=== PATIENT | female | born 1975 | race Caucasian/White ===

== ENCOUNTER 2021-03-12 21:21 | Emergency (ER) | payer MEDICAID, SELFPAY ==
--- NOTE | ~2021-03-12 | XR_ITS ---
EXAMINATION: XR ANKLE, RIGHT XR FOOT, RIGHT CLINICAL INFORMATION: Unable to ambulate. Pain in the ankle and foot. COMPARISON: None TECHNIQUE: AP, lateral, and mortise views of the right ankle and AP, lateral, and oblique views of the right foot. Lateral view of the ankle is included with the foot. FINDINGS: RIGHT ANKLE: Mild soft tissue swelling at the ankle and hindfoot. No acute fracture or malalignment. Ankle mortise is symmetric. No ankle joint effusion. Bone mineralization is normal. Small enthesopathic spurs are present at the Achilles tendon insertion and plantar fascial origin on the calcaneus. RIGHT FOOT: No fracture or malalignment. Mild soft tissue swelling at the ankle and hindfoot. Joint spaces are well-preserved. No erosions. Normal foot alignment. No radiodense foreign bodies. Small enthesopathic spurs are present at the Achilles tendon insertion and plantar fascial origin on the calcaneus. XR/XR ankle RT min 3V IMPRESSION: No acute osseous abnormalities. Mild soft tissue swelling at the ankle and hindfoot. Small enthesopathic spurs at the calcaneus.
--- NOTE | ~2021-03-12 | XR_ITS ---
EXAMINATION: XR ANKLE, RIGHT XR FOOT, RIGHT CLINICAL INFORMATION: Unable to ambulate. Pain in the ankle and foot. COMPARISON: None TECHNIQUE: AP, lateral, and mortise views of the right ankle and AP, lateral, and oblique views of the right foot. Lateral view of the ankle is included with the foot. FINDINGS: RIGHT ANKLE: Mild soft tissue swelling at the ankle and hindfoot. No acute fracture or malalignment. Ankle mortise is symmetric. No ankle joint effusion. Bone mineralization is normal. Small enthesopathic spurs are present at the Achilles tendon insertion and plantar fascial origin on the calcaneus. RIGHT FOOT: No fracture or malalignment. Mild soft tissue swelling at the ankle and hindfoot. Joint spaces are well-preserved. No erosions. Normal foot alignment. No radiodense foreign bodies. Small enthesopathic spurs are present at the Achilles tendon insertion and plantar fascial origin on the calcaneus. XR/XR foot RT 2V IMPRESSION: No acute osseous abnormalities. Mild soft tissue swelling at the ankle and hindfoot. Small enthesopathic spurs at the calcaneus.
[2021-03-12 21:34] VITALS: BP 134/67; PULSE 105; RESP 18; TEMP 36.7; O2SAT 100; BMI 24.4
--- NOTE | 2021-03-12 23:35 | ED.LOWEXIN ---
HPI - Extremity Injury (Lower) General Chief Complaint: Extremity Injury, Lower Stated Complaint: fall - leg injury Source: patient and family Mode of arrival: ambulatory Limitations: language barrier History of Present Illness HPI Narrative: 45-year-old female presents with right ankle pain after sliding down the stairs earlier today. She does not report any prodromal symptoms or head strike, loss of consciousness or any other concerning symptoms. She states that it is very difficult to walk on her ankle because of the pain and swelling. She does not report any other symptoms at this time MD complaint: ankle injury Onset (ago): hour(s) (Within the hour of arrival) Type of Injury: inversion Place: home Severity: moderate Severity scale (1-10): 7 Relieving factors: nothing Exacerbating factors: weight bearing, movement and palpation Context: walking Associated symptoms: swelling and unable to bear weight Other symptoms: none Treatments prior to arrival: cold therapy Related Data Allergies Allergy/AdvReac Type Severity Reaction Status Date / Time aspirin [ASA] Allergy Angioedema Verified 03/12/21 21:41 Review of Systems Review of Systems: Constitutional: No Fever, No Chills ENT/Mouth: No Ear Pain, No Hoarseness, No sore throat Eyes: No Eye Pain, No Swelling, No Redness, No Foreign Body Cardiovascular: No Chest Pain, No SOB Respiratory: No Cough, No Dyspnea Gastrointestinal: No Nausea, No Vomiting, No Diarrhea, No abdominal Pain Genitourinary: No Dysuria, No Hematuria Musculoskeletal: positive right ankle bruising, pain and swelling No Myalgias Skin: No Skin lacerations, No rash Neuro: No Weakness, No Numbness, No Paresthesias, No Loss of Consciousness, No Dizziness, No Headache Psych: No Anxiety/Panic, No Depression Heme/Lymph: no easy bruising, no Lymphadenopathy Endocrine: No Polyuria, No Polydipsia Yes all other systems are reviewed and are negative COUNTS INCLUDE 234 BEDS AT THE [facility] Past Medical History Attestation statement: The following information was validated with the patient. Source: old records reviewed Medical History (Updated 03/13/21 @ 00:36 by Jessi Zuniga NP) Asthma Hypothyroid Surgical History History of thyroid surgery Social History Social History Advance Directives: No Advance Directives Information Provided: Yes Patient : No Physical Exam Vital Signs: Vital Signs: Last Vital Signs Temp 98.0 F 03/12/21 21:34 Pulse 105 H 03/12/21 21:34 Resp 18 03/12/21 21:34 BP 134/67 03/12/21 21:34 Pulse Ox 100 03/12/21 21:34 Body Mass Index 24.4 Appearance: Alert. Oriented X3. No acute distress. Eyes: Pupils equal, round and reactive to light. ENT: Pharynx normal. Neck: Normal inspection. Neck supple. CVS: Normal heart rate and rhythm. Pulses normal. Respiratory: No respiratory distress. Breath sounds normal. Abdomen: Soft and nontender. Skin: Skin warm and dry. Normal skin color. Normal skin turgor. Extremities: Right lateral malleolar process bruising, swelling and tenderness to palpation. Decreased range of motion on inversion and eversion, moderate range of motion when flexing and extending. Brisk capillary refill, equal pulses. Normal sensation. Neuro: No motor deficit. No sensory deficit. Cranial nerves 2-12 intact. No focal neural deficits. Course Course Course Narrative: 45-year-old female presents with a suspected ankle sprain. X-rays are negative for fractures however based on her presentation, decreased range of motion, swelling, bruising and pain is highly suspicious for sprain. Will place in an Aircast and Phil wrap. Will give Tylenol for pain. Will have patient follow-up with primary care physician or Orthopedics as needed. apprentice jockey utilized for all correspondence. Google translate utilized for discharge instructions. MDM - Extremity Injury (Lower) Differential Diagnosis Differential diagnosis: Likely ankle sprain and strain and ankle fracture Medical Records Attestation: I reviewed the patient's medical records. Imaging Data Ankle and foot x-ray: Attestation: I personally reviewed and interpreted this imaging study as follows: Radiologist's impression: EXAMINATION: XR ANKLE, RIGHT XR FOOT, RIGHT CLINICAL INFORMATION: Unable to ambulate. Pain in the ankle and foot.? COMPARISON: None? TECHNIQUE: AP, lateral, and mortise views of the right ankle and AP, lateral, and oblique views of the right foot. Lateral view of the ankle is included with the foot. FINDINGS: RIGHT ANKLE:? Mild soft tissue swelling at the ankle and hindfoot. No acute fracture or malalignment. Ankle mortise is symmetric. No ankle joint effusion. Bone mineralization is normal. Small enthesopathic spurs are present at the Achilles tendon insertion and plantar fascial origin on the calcaneus.? RIGHT FOOT: No fracture or malalignment. Mild soft tissue swelling at the ankle and hindfoot. Joint spaces are well-preserved. No erosions. Normal foot alignment. No radiodense foreign bodies. Small enthesopathic spurs are present at the Achilles tendon insertion and plantar fascial origin on the calcaneus.? XR/XR ankle RT min 3V IMPRESSION: No acute osseous abnormalities. Mild soft tissue swelling at the ankle and hindfoot. Small enthesopathic spurs at the calcaneus. Discharge Plan Discharge Clinical Impression: Ankle sprain and strain Patient Disposition: Home, Self-Care Instructions: Ankle Sprain (ED), Ankle Stirrup Splint (ED), R.I.C.E. Treatment (ED) Additional Instructions: Fue evaluado por dolor en el tobillo derecho. Las radiograf?as son negativas para los hallazgos agudos que requieren alma intervenci?n urgente. No hay fracturas ni dislocaciones. Tiene un esguince de rick 1 sospechado. Use la f?pamela seg?n sea necesario para mayor comodidad. Puede soportar peso sobre el pie derecho seg?n lo tolere. Use muletas para elizalde comodidad. Krys un seguimiento con el m?dico de atenci?n primaria y / o el ortopedista seg?n sea necesario. Telma por elegir terrence departamento de emergencias para elizalde evaluaci?n. Krys un seguimiento con elizalde m?dico de atenci?n primaria seg?n sea necesario. Regrese al departamento de emergencias por cualquier s?ntoma nuevo, preocupante o que empeore. You were evaluated for right ankle pain. X-rays are negative for acute findings requiring emergent intervention. There are no fractures or dislocations. You do have a suspected grade 1 sprain. Use the splint as needed for comfort. You may bear weight to the right foot as tolerated. Use crutches for comfort. Follow-up with primary care physician and/or orthopedics as needed. Thank you for choosing this emergency department for evaluation. Please follow-up with primary care physician as needed. Return to the emergency department for any new, concerning, or worsening symptoms. Referrals: Steph Gould PA-C [Physician Fire Crew Specialist] - 2 days (Ankle sprain) Interventions: ED Discharge Assessment Last Done: 03/13/21 01:18 Discharge Date/Time: 03/13/21 01:21
[2021-03-13] MEDS: Acetaminophen 325 MG TABLET 650 MG PO (00:32)
== END 2021-03-13 01:21 | disposition home or self-care (01) ==
PROVIDERS: Emergency Provider Emergency Medicine Emergency Medical Services; PCP Internal Medicine
DX: S93.401A Sprain of unspecified ligament of right ankle, initial encounter (principal); M25.572 Pain in left ankle and joints of left foot; W10.9XXA Fall (on) (from) unspecified stairs and steps, initial encounter; Y93.9 Activity, unspecified; Y92.009 Unspecified place in unspecified non-institutional (private) residence as the place of occurrence of the external cause; Y99.9 Unspecified external cause status
CPT/HCPCS: 29515; 73610; 73620; 99284

== ENCOUNTER 2021-06-19 11:08 | Outpatient (REF) | payer MEDICAID, SELFPAY ==
--- NOTE | ~2021-06-19 | MM_ITS ---
EXAMINATION: MM SCREENING DIGITAL BREAST TOMOSYNTHESIS, BILATERAL CLINICAL INFORMATION: Screening. Asymptomatic. The lifetime risk of breast cancer based on the Tyrer-Cuzick Model is 7%. COMPARISON: Mammography: 11/29/2017, 11/05/2017 (baseline), targeted left breast ultrasound 11/29/2017 TECHNIQUE: Digital breast tomosynthesis is performed in both the craniocaudal and mediolateral oblique views along with computer-aided detection (CAD). Synthesized 2D images are generated from the tomosynthesis. FINDINGS: The breasts are heterogeneously dense, which may obscure small masses (ACR BI-RADS breast composition Category c). The known cyst anterior medial left breast is increased in size, approximately 2.5 cm compared with prior measurement 1.9 cm in 2018. Adjacent small satellite cyst is without significant change. The remainder of the breasts show no significant mass and no architectural abnormality or abnormal calcifications. The axilla and skin contours are unremarkable. MM/MM tomosynthesis screening BI IMPRESSION: No mammographic evidence of malignancy. Fibrocystic changes anterior medial left breast. ASSESSMENT: BI-RADS 2: Benign RECOMMENDATION: Routine annual mammography screening. This patient's information was entered into a reminder system with a target due date for their next mammogram.
--- NOTE | ~2021-06-19 | US_ITS ---
EXAMINATION: US PELVIS CLINICAL INFORMATION: Abnormal bleeding COMPARISON: Previous pelvic ultrasound January 2018 TECHNIQUE: Ultrasound of the pelvis is performed using both transabdominal and transvaginal transducers along with Doppler. Transvaginal imaging is performed due to inadequate visualization transabdominally. FINDINGS: The uterus is anteverted and measures 9.3 x 4.7 x 5.3 cm in dimension. No focal uterine lesion is seen. Endometrial thickness measures 0.8 cm. There is a 0.8 x 0.4 x 0.5 cm hyperechoic area in the abdomen with central vascularity questionable for a polyp. There is an adjacent 3 mm cyst in the endometrium. There are nabothian cysts in the cervix. The ovaries are normal-appearing. The right ovary measures 2.2 x 1.2 x 1.4 cm. The left ovary measures 2.3 x 1.7 x 2 cm. There is no fluid in the pelvis. US/US pelvic and transvaginal IMPRESSION: Question 8 x 4 x 5 cm endometrial polyp. This could be further evaluated with a follow-up pelvic ultrasound, sonohysterogram or pelvic MRI.
== END 2021-06-19 11:09 | disposition home or self-care (01) ==
LOC: HO.US 11:08
PROVIDERS: Visit Provider Advanced Practice Midwife
DX: Z12.31 Encounter for screening mammogram for malignant neoplasm of breast (principal); N93.9 Abnormal uterine and vaginal bleeding, unspecified
CPT/HCPCS: 76830; 76856; 77063; 77067

== ENCOUNTER 2021-07-17 13:13 | Outpatient (REF) | payer MEDICAID, SELFPAY ==
[2021-07-17 15:06] LABS: Hematocrit 39.8 % (37.0-47.0); Hemoglobin 12.9 g/dl (12.0-16.0); Mean Corpuscular HGB Conc 32.4 g/dl (31.0-35.0); Mean Corpuscular Hemoglobin 27.7 pg (27.0-33.0); Mean Corpuscular Volume 85.6 fL (80.0-98.0); Mean Platelet Volume 12.2 fL (9.4-12.3); Platelet Count 309 X10*3/uL (160-400); Red Blood Count 4.65 X10*6/uL (4.20-5.50); Red Cell Distribution Width 13.3 % (11.0-16.0); White Blood Count 9.2 X10*3/uL (4.8-10.8)
[2021-07-17 15:50] LABS: TSH reflex Free T4 2.52 uIU/mL (0.32-4.0)
[2021-07-18 05:50] LABS: CT PCR NOT DETECTED (Not Detect.); NG PCR NOT DETECTED (Not Detect.)
[2021-07-18 10:20] LABS: BV Int Neg Control Negative (Negative); BV Int Pos Control Positive (Positive)
== END 2021-07-17 13:14 | disposition home or self-care (01) ==
LOC: HO.LAB 13:13
PROVIDERS: Visit Provider Advanced Practice Midwife
DX: N93.9 Abnormal uterine and vaginal bleeding, unspecified (principal); N84.0 Polyp of corpus uteri
CPT/HCPCS: 36415; 81025; 84443; 85027; 87480; 87491; 87510; 87591; 87660; 99202

== ENCOUNTER → 2021-08-09 10:06 | Outpatient (BNVA) | payer MEDICAID, SELFPAY | PROVIDERS: PCP Registered Nurse Community Health; Visit Provider Obstetrics & Gynecology | DX: N93.9 Abnormal uterine and vaginal bleeding, unspecified (principal) | CPT/HCPCS: 99212 ==

== ENCOUNTER 2021-09-01 11:47 | Day surgery (SDC) | payer MEDICAID, SELFPAY ==
[2021-08-25 13:15] VITALS: BMI 24.7
--- NOTE | 2021-08-31 08:28 | HO.ANESPROP2 ---
Documented by User: Amaya Dugan NP 08/31/21 08:28 HPI - Anesthesia Eval Consult details Narrative: 46yo F for D&C Hysteroscopy, Poss Polypectomy, Poss Myomectomy PMFSH Active Problems Active Problems: All Active Problems (Updated 08/09/21 @ 10:15 by Elvis Gupta MD) Abnormal uterine bleeding (AUB) (Acute) Past Medical History Medical History Abnormal uterine bleeding (AUB) Asthma H/O abnormal cervical Papanicolaou smear History of anxiety Hyperlipidemia Hypothyroid Osteoporosis Vitamin D deficiency Surgical History Surgical History History of thyroid surgery Hx of tubal ligation Social History Social History Alcohol intake: current Alcohol intake frequency: holidays/special occasions only Patient Tobacco Use Status: Never used Tobacco Advance Directives: No (unknown) Advance Directives Information Provided: Yes (brochure mailed) Advance Directives on File: No Patient : No FDLMP: 08/04/21 Meds Allergies Allergy/AdvReac Type Severity Reaction Status Date / Time aspirin [ASA] Allergy Angioedema Verified 08/09/21 10:15 Home Medications Medication Instructions Recorded Confirmed Last Taken Type albuterol sulfate 90 mcg/actuation 2 puff PO Q4-6H PRN 07/17/21 Unknown History aerosol inhaler (ProAir HFA) levothyroxine 25 mcg tablet 25 mcg PO DAILY 07/17/21 Unknown History Exam Exam Date and Time: August 31, 2021 0828 Height,Weight and Vital Signs: Height 5 ft Weight 57.606 kg Assessment and Plan Assessment Anesthesia Assessment: Chart Reviewed Documented by User: Kiesha Lai MD 09/01/21 13:01 PMFSH Active Problems Active Problems: All Active Problems (Updated 08/09/21 @ 10:15 by Elvis Gupta MD) Abnormal uterine bleeding (AUB) (Acute) Asthma stable. Inhaler prn. Not used inhaler for over a month Past Medical History Medical History Abnormal uterine bleeding (AUB) Asthma H/O abnormal cervical Papanicolaou smear History of anxiety Hyperlipidemia Hypothyroid Osteoporosis Vitamin D deficiency Family History Family history of problems with anesthesia: No Surgical History Surgical History History of thyroid surgery Hx of tubal ligation History of Problems with Anesthesia: No Social History Social History Alcohol intake: current Alcohol intake frequency: holidays/special occasions only Patient Tobacco Use Status: Never used Tobacco Advance Directives: No (unknown) Advance Directives Information Provided: Yes (brochure mailed) Advance Directives on File: No Patient : No FDLMP: 08/04/21 Meds Allergies Allergy/AdvReac Type Severity Reaction Status Date / Time aspirin [ASA] Allergy Angioedema Verified 08/09/21 10:15 Home Medications Medication Instructions Recorded Confirmed Last Taken Type albuterol sulfate 90 mcg/actuation 2 puff PO Q4-6H PRN 07/17/21 Unknown History aerosol inhaler (ProAir HFA) levothyroxine 25 mcg tablet 25 mcg PO DAILY 07/17/21 Unknown History Exam Height,Weight and Vital Signs: Height 5 ft Weight 57.606 kg Vital Signs Temp Pulse Resp BP Pulse Ox 09/01/21 12:32 98.7 F 120 H 20 140/68 H 98 Pertinent Lab Results Pertinent Lab Results: Lab Results 09/01/21 Range/Units 12:13 Urine Test NEGATIVE (NEGATIVE) Airway Mallampati Class: III (Significant overbite) TM Dist: >3cm Neck ROM: Full Loose/Missing/Broken Teeth: Yes (2 molars broken, 2 molars extracted) Heart: RRR Lungs: CTAB Assessment and Plan Assessment Anesthesia Assessment: Anesthesia Plan Discussed Final Anesthetic Review Family History of Problems with Anesthesia: No History of Problems with Anesthesia: No NPO: Yes ASA Class: II Final Preanesthetic Review: No Changes in Pt Med Stat, Meds/Allgs Chart Reviewed, Consent Obtained/Reviewed and Anes Risks/Benef Reviewed Patient Risk: Low Procedure Risk: Low Assessment/Block/Sedation in SS: Assess/Block/Sedation-SS Anesthetic Plan Anesthetic Plan: GA and MAC: Disposition: Standard PACU
[2021-09-01 12:27] LABS: UPreg QC Valid YES; Urine Pregnancy NEGATIVE (NEGATIVE)
[2021-09-01 12:32] VITALS: BP 140/68; PULSE 120; RESP 20; TEMP 37.1; O2SAT 98
--- NOTE | 2021-09-01 12:36 | MHC.SHP ---
Pre-Procedural Eval Section A Date of Service: 09/01/21 The patient is an INPATIENT: No Changes since office visit: No Cold of Flu in the past 2 weeks, No New Medical Problems, No Changes in Medication and No Patient answered all questions The History & Physical has been completed within 30 days and I have reviewed it.: Yes Section B Chief Complaint: AUB Allergies: Allergies Allergy/AdvReac Type Severity Reaction Status Date / Time aspirin [ASA] Allergy Angioedema Verified 08/09/21 10:15 Plan Diagnosis/Plan: Unchanged I have reviewed the history and physical and performed a pertinent physical examination on my patient. No changes have occurred unless specified.
[2021-09-01] MEDS: Lactated Ringers 1,000 ML 100 ML IVCONT (13:02)
--- NOTE | 2021-09-01 14:14 | P.BOP_ITS ---
Brief Operative Note Date of Service: 09/01/21 Pre-op diagnosis: Abnormal uterine bleeding Post-op diagnosis: same ( the same plus endometrial polyp) Procedure: Hysteroscopy D&C, Polypectomy Surgeon: Elvis Gupta MD Anesthesia: MAC Was an Technical Writer And Editor used for this Procedure?: No Estimated blood loss (mL): 0 Pathology: other (Endometrial Scrapping. Polyp) Condition: stable Disposition: PACU
--- NOTE | 2021-09-01 14:14 | W.PM.OPN ---
Operative Note Operative Note Date of Service: 09/01/21 Narrative: Preop Diagnosis: abnormal uterine bleeding Operation: Diagnostic Hysteroscopy, Dilataion & Curettage and polypectomy Post Op Diagnosis: Endometrial Polyp QBL: Minimal Anesthesia: MAC Surgeon: Elvis Gupta MD Steward Dishwasher: None Complication: None Pathology: Endometrial Scrapings, Endometrial polyp Procedure: The patient was put in the dorsal lithotomy position, scrubbed, and draped in the usual manner. A sterile speculum was inserted in the patient's vagina. The anterior lip of the cervix was grasped with a single tooth tenaculum. The cervix was dilated up to 5 mm, then the scope was inserted in the patient's uterus. Inspection revealed endometrial polyp. The Myosure light device was used; it was introduced through the operative channel and polypectomy done with no complications. At the end of the procedure, all instruments were taken out of the patient uterine and vaginal cavity, and sharp curetting was carried on with moderate amount of tissues retrieved. The single tooth tenaculum was then removed and homeostasis was assured using pressure,. The patient tolerated the procedure well and was transferred to the PACU in a stable condition.
[2021-09-01 14:25] VITALS: BP 124/76; PULSE 106; RESP 16; TEMP 37.1; O2SAT 100
[2021-09-01 14:30] VITALS: BP 119/76; PULSE 103; RESP 16; O2SAT 100
[2021-09-01 14:44] VITALS: BP 119/78; PULSE 101; RESP 18; TEMP 36.4; O2SAT 99
== END 2021-09-01 15:27 | disposition home or self-care (01) ==
PROVIDERS: Visit Provider Obstetrics & Gynecology
PROC: 0UDB8ZZ Extraction of Endometrium, Via Natural or Artificial Opening Endoscopic (ICD-10-PCS; CPT 58558; principal; 2021-09-01 13:20)
DX: N93.9 Abnormal uterine and vaginal bleeding, unspecified (principal); N84.0 Polyp of corpus uteri; J45.909 Unspecified asthma, uncomplicated; Z88.8 Allergy status to other drugs, medicaments and biological substances; E03.9 Hypothyroidism, unspecified; E78.5 Hyperlipidemia, unspecified; E55.9 Vitamin D deficiency, unspecified; M81.0 Age-related osteoporosis without current pathological fracture; Z79.899 Other long term (current) drug therapy
CPT/HCPCS: 58558; 81025; 88305; J2250; J2405; J3010

== ENCOUNTER → 2021-09-13 12:45 | Outpatient (BNVA) | payer MEDICAID, SELFPAY | PROVIDERS: Visit Provider Obstetrics & Gynecology ==

== ENCOUNTER → 2022-02-22 10:59 | Outpatient (BNVA) | payer MEDICAID, SELFPAY | PROVIDERS: Visit Provider Obstetrics & Gynecology | DX: N93.9 Abnormal uterine and vaginal bleeding, unspecified (principal) | CPT/HCPCS: 99212 ==

== ENCOUNTER 2022-05-23 09:11 | Outpatient (REF) | payer MEDICAID, SELFPAY ==
--- NOTE | ~2022-05-23 | XR_ITS ---
EXAMINATION: XR CHEST CLINICAL INFORMATION: Shortness of breath. COMPARISON: None TECHNIQUE: 2 views of the chest were obtained. FINDINGS: No significant abnormality is noted involving the heart, lungs, mediastinum, bony thorax or soft tissues. XR/XR chest 2V IMPRESSION: Unremarkable chest examination.
== END 2022-05-23 09:12 | disposition home or self-care (01) ==
LOC: HO.XRAY 09:11
PROVIDERS: PCP Nurse Practitioner Primary Care; Visit Provider Nurse Practitioner Primary Care
DX: R06.02 Shortness of breath (principal)
CPT/HCPCS: 71046

== ENCOUNTER 2023-04-09 08:48 | Outpatient (REF) | payer MEDICAID, SELFPAY | END 2023-04-09 08:49 | disposition home or self-care (01) | LOC: HO.MAMMO 08:48 | PROVIDERS: PCP Nurse Practitioner Primary Care; Visit Provider Nurse Practitioner Primary Care | DX: Z13.89 Encounter for screening for other disorder (principal) ==

== ENCOUNTER 2023-06-26 08:21 | Outpatient (REF) | payer MEDICAID, SELFPAY ==
[2023-07-02 17:29] LABS: HPV 16 RNA NOT DETECTED (NOT DETECTED); HPV mRNA E6/E7 rflx Detected (Not Detected)
== END 2023-06-26 08:22 | disposition home or self-care (01) ==
LOC: HO.LNP 08:21
PROVIDERS: PCP Nurse Practitioner Primary Care; Visit Provider Obstetrics & Gynecology
DX: Z01.419 Encounter for gynecological examination (general) (routine) without abnormal findings (principal); Z11.51 Encounter for screening for human papillomavirus (HPV); N85.2 Hypertrophy of uterus
CPT/HCPCS: 87624; 87625; 88142

== ENCOUNTER 2023-06-26 08:21 | Outpatient (AMB) | payer MEDICAID, SELFPAY ==
--- NOTE | 2023-06-26 08:24 | A.OFFVIS_ITS ---
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 No complaints. Last Pap/HPV was in 12/27 was negative Last Mammogram was in 07/02 was BI-RADS 2 No previous screening Colonoscopy PFSH Medical History Abnormal uterine bleeding (AUB) Osteoporosis Hyperlipidemia H/O abnormal cervical Papanicolaou smear History of anxiety Vitamin D deficiency Asthma Hypothyroid Surgical History Hx of tubal ligation History of thyroid surgery Social History Household Members Other:: daughter Housing: House Alcohol intake: current Alcohol intake frequency: holidays/special occasions only Patient Tobacco Use Status: Never used Tobacco Current occupational status: unemployed Sexually active: No Sexual orientation: Straight/Heterosexual Gender identity: Female Female Reproductive History Menstrual Age of Menarche: 12 Date of last menstrual period: 06/12/23 control method: permanent sterilization Total pregnancies: 5 Full term: 4 Number of Living Children: 4 Ab spontaneous: 1 Review of Systems Const All systems reviewed & are unremarkable except as noted in HPI and below Card Reports as per HPI Resp Reports as per HPI GI Reports as per HPI and Reports no additional complaints Reports as per HPI Physical Exam Vital Signs: Last Vital Signs BP 110/70 06/26/23 08:26 BMI result Body Mass Index 23.8 Const General: cooperative, healthy appearing and comfortable Chest Chest palpation & inspection: normal inspection of the chest and normal palpation of entire chest wall Breast/axilla inspection: normal inspection of the breasts and normal inspection of the axillae Breast/axilla palpation: normal palpation of the breasts, normal palpation of the axillae and no axillary lymphadenopathy Resp Effort & Inspection: normal respiratory effort Auscultation: clear to auscultation bilaterally Percussion: percussion normal Cardio Palpation: normal PMI Rate: regular rate Rhythm: regular rhythm Heart sounds: no murmurs and no rubs Peripheral pulses: Peripheral pulses 2+ throughout GI Inspection: Yes normal to inspection Palpation (GI): Soft to palpation, nontender, no guarding, not rigid and No hepatosplenomegaly present Percussion: Yes normal to percussion Auscultation: normal bowel sounds Rectal Exam - Female: deferred General: Yes bladder normal to palpation External Female Exam: No lesion Speculum Exam - Vagina: normal appearance of the vagina, normal palpation, normal vaginal discharge and not erythematous Speculum Exam - Cervix: normal appearance of the cervix and normal palpation Bimanual exam- vagina & uterus: normal bimanual exam, normal palpation, bladder normal to palpation, consistency normal, normal palpation and enlarged Bimanual Exam- Adnexa, other: normal adnexae, no masses and no tenderness Assessment & Plan Assessment & Plan (1) Well woman exam: Code(s): Z01.419 - Encounter for gynecological examination (general) (routine) without abnormal findings Plan: Cotesting done. Mammogram ordered. Will refer to GI for screening colonoscopy Counseled the patient about the recommended dietary allowance of 1000 mg of Calcium & 600 IU of vitamin D. The patient was instructed to perform monthly self-breast exams and to schedule an annual exam in a year; All questions answered and the patient verbalized understanding. Instructed the patient to schedule annual exam in a year (2) Large uterus: Code(s): N85.2 - Hypertrophy of uterus Plan: Discussed with the patient the finding on pelvic exam, enlarged uterus, will order pelvic ultrasound and treat accordingly. Instructions given to patient to schedule a 2 week ultrasound follow-up appointment. All questions answered, the patient verbalized understanding Orders: Orders MM screening mammo BI Today Z12.31 - Encounter for screening mammogram for malignant neoplasm of breast Referrals Gastroenterology Referral Z12.11 - Encounter for screening for malignant neoplasm of colon Coding Level of Care Code Est Pt Prev Care 40-64y(70528) Diagnoses Well woman exam Z01.419 Large uterus N85.2
[2023-06-26 08:26] VITALS: BP 110/70; BMI 23.8
== END 2023-06-26 08:54 | disposition home or self-care (01) ==
LOC: HO.HWS 08:21
PROVIDERS: PCP Nurse Practitioner Primary Care; Visit Provider Obstetrics & Gynecology
DX: Z01.419 Encounter for gynecological examination (general) (routine) without abnormal findings (principal); N85.2 Hypertrophy of uterus
CPT/HCPCS: 99396

== ENCOUNTER 2023-07-11 09:45 | Outpatient (AMB) | payer MEDICAID, SELFPAY ==
--- NOTE | 2023-07-11 09:50 | A.OFFVIS_ITS ---
Intake Vital Signs 07/11/23 09:53 Height 5 ft 1 in Weight 125 lb 10.616 oz BMI 23.7 BP 116/72 Intake Visit Reasons: Colposcopy Auger Mill Operator Required: Yes Auger Mill Operator Language: Roller Mechanic Name: Kaylene DONG Information Interpreted: non-clinical & clinical Coating Mixer Supervisor: Coating Mixer Supervisor Present (Kaylene DONG) Accompanied by: Self / Same As Patient Allergies aspirin [ASA] Allergy (Verified 07/11/23 09:58) Angioedema HPI HPI Comments History of Present Illness Details Presenting for abnormal Pap smear showing LSIL/HPV positive PFSH Medical History Abnormal uterine bleeding (AUB) Osteoporosis Hyperlipidemia H/O abnormal cervical Papanicolaou smear History of anxiety Vitamin D deficiency Asthma Hypothyroid Surgical History Hx of tubal ligation History of thyroid surgery Social History Household Members Other:: daughter Housing: House Alcohol intake: current Alcohol intake frequency: holidays/special occasions only Patient Tobacco Use Status: Never used Tobacco Current occupational status: unemployed Sexual orientation: Straight/Heterosexual Gender identity: Female Female Reproductive History Menstrual Age of Menarche: 12 Physical Exam Vital Signs: Last Vital Signs BP 116/72 07/11/23 09:53 BMI result Body Mass Index 23.7 Office Procedures Colposcopy Before the procedure was started discussed with the patient the procedure, alternatives & all the risks associated with the procedure (bleeding, infection, injury to vagina, bladder, vessels, possible need for transfusion with all its risks) then patient signed the consent UPT done in the office & negative Pap smear = LSIL/HPV positive Speculum inserted, acetic acid used Colposcopy done Transformation zone seen, acetowhite lesions identified at 6+7+11+1+3 o?clock, cervical biopsies taken from 6+7+11+1+3 o?clock, ECC done afterwards. Vaginoscopy of the upper vagina showed no evidence of any aceto-white lesions Monsel solution used for hemostasis. The patient tolerated well . At the end the patient was instructed to call if temp>100.4, abdominal pain, n/v, bleeding; The patient was given the following instructions: nothing per vagina, no intercourse or bath tub use. All questions answered the patient verbalized understanding. Instructed the patient to make an appointment in 2 weeks for follow-up This note was generated with a voice recognition program. Some errors may have been overlooked during the review of this note. Sometimes these errors may affect the content or meaning of a given sentence. [id number] of cervix including upper vagina with biopsy and ECC Procedure code (CPT) selection complete Results AMB Test Urine AMB Test Urine Negative Last Edit by Kaylene Amezcua CMA on 09:59 Assessment & Plan Assessment & Plan (1) LGSIL on Pap smear of cervix: Code(s): R87.612 - Low grade squamous intraepithelial lesion on cytologic smear of cervix (LGSIL) Plan: Discussed with the patient the result of her abnormal pap, its significance, risk of progression, persistence, and regression if untreated. the false positive/negative rate being a screening test, the need for diagnostic test - colposcopy, biopsy, endocervical curettage. The patient verbalized understanding and agreed with the plan, all questions answered. Colpo done, see procedure note Orders: Orders AMB HCG Urine Test Today Z32.02 - Encounter for test, result negative AMB Colposcopy Today R87.612 - Low grade squamous intraepithelial lesion on cytologic smear of cervix (LGSIL) Coding Level of Care Code Procedure Only Diagnoses LGSIL on Pap smear of cervix R87.612 CPT Codes Colposcopy - CPT: 62753-Tieuxxsyy of cervix including upper vagina with biopsy and ECC ([id number])
[2023-07-11 09:53] VITALS: BP 116/72; BMI 23.7
== END 2023-07-11 10:39 | disposition home or self-care (01) ==
PROVIDERS: PCP Nurse Practitioner Primary Care; Visit Provider Obstetrics & Gynecology
DX: R87.612 Low grade squamous intraepithelial lesion on cytologic smear of cervix (LGSIL) (principal); Z32.02 Encounter for pregnancy test, result negative
CPT/HCPCS: 57454

== ENCOUNTER 2023-07-11 09:45 | Outpatient (REF) | payer MEDICAID, SELFPAY | END 2023-07-11 09:46 | disposition home or self-care (01) | LOC: HO.LNP 09:45 | PROVIDERS: PCP Nurse Practitioner Primary Care; Visit Provider Obstetrics & Gynecology | DX: Z32.02 Encounter for pregnancy test, result negative (principal); R87.612 Low grade squamous intraepithelial lesion on cytologic smear of cervix (LGSIL) | CPT/HCPCS: 57454; 81025; 88305 ==

== ENCOUNTER 2023-07-26 10:37 | Outpatient (REF) | payer MEDICAID, SELFPAY ==
--- NOTE | ~2023-07-26 | US_ITS ---
EXAMINATION: US PELVIS CLINICAL INFORMATION: Enlarged uterus with abnormal uterine bleeding. COMPARISON: None available. TECHNIQUE: Ultrasound of the pelvis is performed using both transabdominal and transvaginal transducers along with Doppler. Transvaginal imaging is performed due to inadequate visualization transabdominally. FINDINGS: UTERUS: The uterus is anteverted and measures 11.8 x 4.7 x 6.2 cm for a volume of 140 mL. The double wall endometrial thickness is 17 mm. The endometrium appears heterogeneous with a small amount of fluid, multiple small cystic areas and a possible 8 x 4 x 9 mm polyp. The uterus is smooth in contour and has normal myometrial echogenicity. No visible fibroid. Nabothian cysts are present in the cervix. ADNEXA: Both ovaries are visualized. There is normal color flow to the adnexa. There is no ovarian torsion. There is no pelvic ascites or fluid collection. Right ovary measures 4.2 x 2.5 x 3.4 cm for a volume of 18.4 mL, which includes a benign simple 3.3 cm cyst. Left ovary measures 2.7 x 1.2 x 1.4 cm for a volume of 2.4 mL and appears normal. US/US pelvic and transvaginal IMPRESSION: 1. Thickened heterogeneous endometrium with a possible polyp. Hysterosonography or hysteroscopy may be useful for further evaluation. 2. Benign simple right ovarian cyst needs no further follow-up.
== END 2023-07-26 10:38 | disposition home or self-care (01) ==
LOC: HO.US 10:37
PROVIDERS: PCP Nurse Practitioner Primary Care; Visit Provider Obstetrics & Gynecology
DX: N85.2 Hypertrophy of uterus (principal); N93.9 Abnormal uterine and vaginal bleeding, unspecified
CPT/HCPCS: 76830; 76856

== ENCOUNTER 2023-08-21 07:38 | Outpatient (AMB) | payer MEDICAID, SELFPAY ==
--- NOTE | 2023-08-21 07:45 | A.OFFVIS_ITS ---
Intake Vital Signs 08/21/23 07:53 Height 5 ft 1 in Weight 125 lb 10.616 oz BMI 23.7 BP 110/66 Intake Visit Reasons: Ultrasound and pre op for hyst Nitric Acid Plant Operator Required: Yes Nitric Acid Plant Operator Language: Rock Loader Name: Kaylene DONG Information Interpreted: non-clinical & clinical Boiler Tenders Supervisor: Boiler Tenders Supervisor Present Accompanied by: Self / Same As Patient Allergies aspirin [ASA] Allergy (Verified 08/21/23 07:54) Angioedema Is last menstrual period known: Yes Last menstrual period: 06/09/20 Post menopausal: No Patient : No Do you need a note to return to daycare/school/sports/work: Yes (for surgery on saturday) HPI HPI Comments History of Present Illness Details Presenting post colpo and for ultrasound follow-up. The patient is doing well with no complaints. Ultrasound showed the following: The uterus is anteverted and measures 11.8 x 4.7 x 6.2 cm for a volume of 140 mL. The double wall endometrial thickness is 17 mm. The endometrium appears heterogeneous with a small amount of fluid, multiple small cystic areas and a possible 8 x 4 x 9 mm polyp. The uterus is smooth in contour and has normal myometrial echogenicity. No visible fibroid. Nabothian cysts are present in the cervix. ADNEXA: Both ovaries are visualized. There is normal color flow to the adnexa. There is no ovarian torsion. There is no pelvic ascites or fluid collection. Right ovary measures 4.2 x 2.5 x 3.4 cm for a volume of 18.4 mL, which includes a benign simple 3.3 cm cyst. Left ovary measures 2.7 x 1.2 x 1.4 cm for a volume of 2.4 mL and appears normal. The pathology showed the following: A. Endocervix, curettage: Fragments of benign endocervical glands, negative for squamous intraepithelial lesion. B. Cervix, 1 o'clock, biopsy: Chronic cervicitis; negative for squamous intraepithelial lesion. C. Cervix, 3 o'clock, biopsy: Acute and chronic cervicitis; negative for squamous intraepithelial lesion. D. Cervix, 6 o'clock, biopsy: Acute and chronic cervicitis with reactive epithelial changes; negative for squamous intraepithelial lesion. E. Cervix, 7 o'clock, biopsy: Chronic cervicitis; negative for squamous intraepithelial lesion. F. Cervix, 11 o'clock, biopsy: Low-grade squamous intraepithelial lesion (SUNIL 1) [facility] Medical History (Updated 08/21/23 @ 07:54 by Elvis Gupta MD) Abnormal uterine bleeding (AUB) Osteoporosis Hyperlipidemia H/O abnormal cervical Papanicolaou smear History of anxiety Vitamin D deficiency Asthma Hypothyroid Surgical History Hx of tubal ligation History of thyroid surgery Social History Household Members Other:: daughter Housing: House Alcohol intake: current Alcohol intake frequency: holidays/special occasions only Patient Tobacco Use Status: Never used Tobacco Current occupational status: unemployed Sexual orientation: Straight/Heterosexual Gender identity: Female Female Reproductive History Menstrual Age of Menarche: 12 Date of last menstrual period: 06/09/20 Total pregnancies: 2 Full term: 2 Review of Systems Card Reports as per HPI and Reports no additional complaints Resp Reports as per HPI and Reports no additional complaints GI Reports as per HPI and Reports no additional complaints Reports as per HPI Physical Exam Const General: cooperative, healthy appearing and comfortable Resp Effort & Inspection: normal respiratory effort Auscultation: clear to auscultation bilaterally Percussion: percussion normal Cardio Palpation: normal PMI Rate: regular rate Rhythm: regular rhythm Heart sounds: no murmurs and no rubs Peripheral pulses: Peripheral pulses 2+ throughout GI Inspection: Yes normal to inspection Palpation (GI): Soft to palpation, nontender, no guarding, not rigid and No hepatosplenomegaly present Percussion: Yes normal to percussion Auscultation: normal bowel sounds Rectal Exam - Female: deferred Assessment & Plan Assessment & Plan (1) Dysplasia of cervix, low grade (SUNIL 1): Code(s): N87.0 - Mild cervical dysplasia Plan: Discussed with the patient the pathology results of the colposcopy biopsies & endocervical curettage ( mild dysplasia-SUNIL 1). Discussed with the patient the sensitivity specificity, positive and negative predictive value in detecting cervical cancer in addition discussed the regression, persistence and progression rates. Recommended co-testing in 12 months, if cytology and or HPV are abnormal will proceed was colposcopy biopsy and endocervical curettage, if lesions gets worse or stays persistent for 2 years will proceed with loop electric excision procedure. Instructions given to the patient to schedule a co test appointment in 1 year. All questions answered the patient verbalized understanding. (2) Abnormal uterine bleeding (AUB): Comment: Endometrial polyp on ultrasound Code(s): N93.9 - Abnormal uterine and vaginal bleeding, unspecified Plan: Discussed the patient the finding on ultrasound showing possible endometrial polyp, recommended hysteroscopy D&C possible polypectomy/myomectomy. Discussed with the patient the procedure , all benefits and risks including but not limited to inability to complete the procedure , bleeding, infection, possible need for blood transfusion with all its risk ( HIV,syphilis, Hepatitis, anaphylaxis shock, others..), injury to bladder, rectum, possible need for laparoscopy/laparotomy or hysterectomy. The patient verbalized understanding and signed the consent. Instructions given the patient to schedule a 2 week postoperative appointment Coding Level of Care Code Est Pt Level 3 (39441) Diagnoses Dysplasia of cervix, low grade (SUNIL 1) N87.0 Abnormal uterine bleeding (AUB) N93.9
[2023-08-21 07:53] VITALS: BP 110/66; BMI 23.7
== END 2023-08-21 08:07 | disposition home or self-care (01) ==
PROVIDERS: PCP Nurse Practitioner Primary Care; Visit Provider Obstetrics & Gynecology
DX: N87.0 Mild cervical dysplasia (principal); N93.9 Abnormal uterine and vaginal bleeding, unspecified
CPT/HCPCS: 99213

== ENCOUNTER → 2023-08-21 07:38 | Outpatient (BNVA) | payer MEDICAID, SELFPAY | PROVIDERS: PCP Nurse Practitioner Primary Care; Visit Provider Obstetrics & Gynecology | DX: N87.0 Mild cervical dysplasia (principal); N93.9 Abnormal uterine and vaginal bleeding, unspecified | CPT/HCPCS: 99212 ==

== ENCOUNTER 2023-10-24 11:36 | Outpatient (AMB) | payer MEDICAID, SELFPAY ==
[2023-10-24 11:48] VITALS: BMI 23.6
--- NOTE | 2023-10-24 11:48 | MHC.OFFVIS ---
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 Pelvic ultrasound done on 08/01/23 showed the following: UTERUS: The uterus is anteverted and measures 11.8 x 4.7 x 6.2 cm for a volume of 140 mL. The double wall endometrial thickness is 17 mm. The endometrium appears heterogeneous with a small amount of fluid, multiple small cystic areas and a possible 8 x 4 x 9 mm polyp. The uterus is smooth in contour and has normal myometrial echogenicity. No visible fibroid. Nabothian cysts are present in the cervix. ADNEXA: Both ovaries are visualized. There is normal color flow to the adnexa. There is no ovarian torsion. There is no pelvic ascites or fluid collection. Right ovary measures 4.2 x 2.5 x 3.4 cm for a volume of 18.4 mL, which includes a benign simple 3.3 cm cyst. Left ovary measures 2.7 x 1.2 x 1.4 cm for a volume of 2.4 mL and appears normal. [facility] Medical History Abnormal uterine bleeding (AUB) Osteoporosis Hyperlipidemia H/O abnormal cervical Papanicolaou smear History of anxiety Vitamin D deficiency Asthma Hypothyroid Surgical History Hx of tubal ligation History of thyroid surgery Social History Household Members Other:: daughter Housing: House Alcohol intake: current Alcohol intake frequency: holidays/special occasions only Patient Tobacco Use Status: Never used Tobacco Current occupational status: unemployed Sexual orientation: Straight/Heterosexual Gender identity: Female Female Reproductive History Menstrual Age of Menarche: 12 Date of last menstrual period: 10/29/20 Total pregnancies: 2 Full term: 2 Review of Systems Card Reports as per HPI and Reports no additional complaints Resp Reports as per HPI and Reports no additional complaints GI Reports as per HPI and Reports no additional complaints Reports as per HPI Physical Exam Vital Signs: BMI result Body Mass Index 23.6 Const General: cooperative, healthy appearing and comfortable Resp Effort & Inspection: normal respiratory effort Auscultation: clear to auscultation bilaterally Percussion: percussion normal Cardio Palpation: normal PMI Rate: regular rate Rhythm: regular rhythm Heart sounds: no murmurs and no rubs Peripheral pulses: Peripheral pulses 2+ throughout GI Inspection: Yes normal to inspection Palpation (GI): Soft to palpation, nontender, no guarding, not rigid and No hepatosplenomegaly present Percussion: Yes normal to percussion Auscultation: normal bowel sounds Rectal Exam - Female: deferred Assessment & Plan Assessment & Plan (1) Abnormal uterine bleeding (AUB): Comment: Endometrial polyp on ultrasound Code(s): N93.9 - Abnormal uterine and vaginal bleeding, unspecified Plan: Discussed with the patient the finding on ultrasound showing endometrial polyp, recommended hysteroscopy D&C possible polypectomy/myomectomy. Discussed with the patient the procedure , all benefits and risks including but not limited to inability to complete the procedure , insufficient endometrial tissue for a complete evaluation of the endometrial cavity , bleeding, infection, possible need for blood transfusion with all its risk ( HIV,syphilis, Hepatitis, anaphylaxis shock, others..), injury to bladder, rectum, possible need for laparoscopy/laparotomy or hysterectomy. The patient verbalized understanding and signed the consent. Instructions given the patient to schedule a 2 week postoperative appointment Coding Level of Care Code Est Pt Level 3 (58050) Diagnoses Abnormal uterine bleeding (AUB) N93.9
== END 2023-10-24 15:02 | disposition home or self-care (01) ==
PROVIDERS: PCP Nurse Practitioner Primary Care; Visit Provider Obstetrics & Gynecology
DX: N93.9 Abnormal uterine and vaginal bleeding, unspecified (principal)
CPT/HCPCS: 99213

== ENCOUNTER → 2023-10-24 11:36 | Outpatient (BNVA) | payer MEDICAID, SELFPAY | PROVIDERS: PCP Nurse Practitioner Primary Care; Visit Provider Obstetrics & Gynecology | DX: N93.9 Abnormal uterine and vaginal bleeding, unspecified (principal); N84.0 Polyp of corpus uteri | CPT/HCPCS: 99212 ==

== ENCOUNTER 2023-11-13 06:01 | Day surgery (SDC) | payer MEDICAID, SELFPAY ==
[2023-11-11 09:14] VITALS: BMI 23.6
--- NOTE | 2023-11-11 13:42 | P.CONAN_ITS ---
Documented by User: Amaya Dugan NP 11/11/23 13:42 HPI - Anesthesia Eval Consult details Narrative: 48yo F for D&C Hysteroscopy,poss myomectomy,poss polypectomy, PMFSH Active Problems Active Problems: All Active Problems (Updated 08/21/23 @ 07:54 by Elvis Gupta MD) Dysplasia of cervix, low grade (SUNIL 1) (Acute) LGSIL on Pap smear of cervix (Acute) Large uterus (Acute) Well woman exam (Acute) Abnormal uterine bleeding (AUB) (Acute) Past Medical History Medical History Abnormal uterine bleeding (AUB) Osteoporosis Hyperlipidemia H/O abnormal cervical Papanicolaou smear History of anxiety Vitamin D deficiency Asthma Hypothyroid Family History Family history of problems with anesthesia: No Surgical History Surgical History Hx of tubal ligation History of thyroid surgery History of Problems with Anesthesia: No Social History Social History Household Members Other:: daughter Housing: House Alcohol intake: current Alcohol intake frequency: does not drink Patient Tobacco Use Status: Never used Tobacco Current occupational status: unemployed Sexual orientation: Straight/Heterosexual Gender identity: Female Meds Allergies Allergy/AdvReac Type Severity Reaction Status Date / Time aspirin [ASA] Allergy Angioedema Verified 11/13/23 06:35 Home Medications Medication Instructions Recorded Confirmed Last Taken Type albuterol sulfate 90 mcg/actuation 2 puff PO Q4-6H PRN asthma 07/17/21 11/13/23 Unknown History aerosol inhaler (ProAir HFA) levothyroxine 25 mcg tablet 25 mcg PO DAILY 07/17/21 11/13/23 Unknown History Exam Height,Weight and Vital Signs: Height 5 ft 1 in Weight 56.699 kg Assessment and Plan Assessment Anesthesia Assessment: Chart Reviewed Final Anesthetic Review Family History of Problems with Anesthesia: No History of Problems with Anesthesia: No Documented by User: Kiesha Lai MD 11/13/23 08:31 [facility] Active Problems Active Problems: All Active Problems (Updated 11/12/23 @ 07:18 by Kiesha Lai MD) Dysplasia of cervix, low grade (SUNIL 1) (Acute) LGSIL on Pap smear of cervix (Acute) Large uterus (Acute) Well woman exam (Acute) Abnormal uterine bleeding (AUB) (Acute) Asthma. No use of inhaler recently Hypothyroidism Past Medical History Medical History Abnormal uterine bleeding (AUB) Osteoporosis Hyperlipidemia H/O abnormal cervical Papanicolaou smear History of anxiety Vitamin D deficiency Asthma Hypothyroid Family History Family history of problems with anesthesia: No Surgical History Surgical History Hx of tubal ligation History of thyroid surgery History of Problems with Anesthesia: No Social History Social History Household Members Other:: daughter Housing: House Alcohol intake: current Alcohol intake frequency: does not drink Patient Tobacco Use Status: Never used Tobacco Current occupational status: unemployed Sexual orientation: Straight/Heterosexual Gender identity: Female Meds Allergies Allergy/AdvReac Type Severity Reaction Status Date / Time aspirin [ASA] Allergy Angioedema Verified 11/13/23 06:35 Home Medications Medication Instructions Recorded Confirmed Last Taken Type albuterol sulfate 90 mcg/actuation 2 puff PO Q4-6H PRN asthma 07/17/21 11/13/23 Unknown History aerosol inhaler (ProAir HFA) levothyroxine 25 mcg tablet 25 mcg PO DAILY 07/17/21 11/13/23 Unknown History Exam Height,Weight and Vital Signs: Height 5 ft 1 in Weight 56.699 kg Vital Signs Temp Pulse Resp BP Pulse Ox O2 Del Method 11/13/23 06:58 98.5 F 94 16 127/70 100 Room Air Pertinent Lab Results Pertinent Lab Results: Lab Results 11/13/23 Range/Units 06:30 Urine Test NEGATIVE (NEGATIVE) Airway Mallampati Class: III (Significant overbite. Small mouth) TM Dist: >3cm Neck ROM: Full Loose/Missing/Broken Teeth: Yes (Broken molar. Missing molars. Denies loose teeth) Heart: RRR Lungs: CTAB Assessment and Plan Assessment Anesthesia Assessment: Anesthesia Plan Discussed and Chart Reviewed Final Anesthetic Review Family History of Problems with Anesthesia: No History of Problems with Anesthesia: No NPO: Yes ASA Class: II Final Preanesthetic Review: No Changes in Pt Med Stat, Meds/Allgs Chart Reviewed, Consent Obtained/Reviewed and Anes Risks/Benef Reviewed Patient Risk: Low Procedure Risk: Low Assessment/Block/Sedation in SS: Assess/Block/Sedation-SS Anesthetic Plan Anesthetic Plan: TIVA Disposition: Standard PACU
[2023-11-13 06:43] VITALS: BMI 24.6
[2023-11-13 06:52] LABS: UPreg QC Valid YES; Urine Pregnancy NEGATIVE (NEGATIVE)
[2023-11-13 06:58] VITALS: BP 127/70; PULSE 94; RESP 16; TEMP 36.9; O2SAT 100
[2023-11-13] MEDS: Lactated Ringers 1,000 ML 100 ML IVCONT (07:17)
--- NOTE | 2023-11-13 07:28 | MHC.SHP ---
Pre-Procedural Eval Section A - 24 Hr Update-Section A only Date of Service: 11/13/23 The patient is an INPATIENT: No Changes since office visit: No Cold of Flu in the past 2 weeks, No New Medical Problems, No Changes in Medication and No Patient answered all questions The patient has been examined within 24 hours of the surgical procedure. The History & Physical has been completed within 30 days and I have reviewed it.: Yes Section B - Complete if H&P > 30 days Chief Complaint: Abnormal uterine and vaginal bleeding, unspecified Allergies: Allergies Allergy/AdvReac Type Severity Reaction Status Date / Time aspirin [ASA] Allergy Angioedema Verified 11/13/23 06:35 Plan Diagnosis/Plan: Unchanged I have reviewed the history and physical and performed a pertinent physical examination on my patient. No changes have occurred unless specified. Time Spent With Patient Time: Total time managing care of this patient today ____ minutes.
--- NOTE | 2023-11-13 08:17 | PM.OP ---
Brief Operative Note Date of Service: 11/13/23 Pre-op diagnosis: Abnormal uterine bleeding, endometrial polyp by ultrasound Post-op diagnosis: same (Endometrial polyp) Procedure: Hysteroscopy D&C, Polypectomy Surgeon: Elvis Gupta MD Anesthesia: GLMA Was an Beveling Machine Operator used for this Procedure?: No Estimated blood loss (mL): 0 Pathology: other (Endometrial Scrapping. Polyp) Condition: stable Disposition: PACU
--- NOTE | 2023-11-13 08:18 | W.PM.OPN ---
Operative Note Operative Note Date of Service: 11/13/23 Narrative: Preop Diagnosis: Abnormal uterine bleeding, Endometrial polyp by US Operation: Diagnostic Hysteroscopy, Dilataion & Curettage and polypectomy Post Op Diagnosis: Endometrial Polyp QBL: Minimal Anesthesia: GLMA Surgeon: Elvis Gupta MD Life Skills Consultant: None Complication: None Pathology: Endometrial Scrapings, Endometrial polyp Procedure: The patient was put in the dorsal lithotomy position, scrubbed, and draped in the usual manner. A sterile speculum was inserted in the patient's vagina. The anterior lip of the cervix was grasped with a single tooth tenaculum. The cervix was dilated up to 5 mm, then the scope was inserted in the patient's uterus. Inspection revealed endometrial polyp. The Myosure Reach device was used; it was introduced through the operative channel and polypectomy done with no complications. The scope was then taken out from the uterine cavity, sharp curettings was carried on with minimal to moderate amount of tissues retrieved. At the end of the procedure, all instruments were taken out of the patient uterine and vaginal cavity. The single tooth tenaculum was removed and homeostasis was assured using pressure,. The patient tolerated the procedure well and was transferred to the PACU in a stable condition.
[2023-11-13 08:26] VITALS: BP 118/72; PULSE 99; RESP 14; TEMP 36.6; O2SAT 100
[2023-11-13 08:45] VITALS: BP 119/74; PULSE 104; RESP 17; TEMP 36.1; O2SAT 100
== END 2023-11-13 09:45 | disposition home or self-care (01) ==
PROVIDERS: PCP Nurse Practitioner Primary Care; Visit Provider Obstetrics & Gynecology
PROC: 0UDB8ZZ Extraction of Endometrium, Via Natural or Artificial Opening Endoscopic (ICD-10-PCS; CPT 58558; principal; 2023-11-13 07:30)
DX: N93.9 Abnormal uterine and vaginal bleeding, unspecified (principal); N84.0 Polyp of corpus uteri; M81.0 Age-related osteoporosis without current pathological fracture; E78.5 Hyperlipidemia, unspecified; E55.9 Vitamin D deficiency, unspecified; E03.9 Hypothyroidism, unspecified; J45.909 Unspecified asthma, uncomplicated; Z79.899 Other long term (current) drug therapy; Z88.8 Allergy status to other drugs, medicaments and biological substances; Z98.51 Tubal ligation status
CPT/HCPCS: 58558; 81025; 88305; J1100; J2250; J2405; J2704; J3010

== ENCOUNTER → 2023-11-13 06:01 | Outpatient (BNV) | payer MEDICAID, SELFPAY | PROVIDERS: PCP Nurse Practitioner Primary Care; Visit Provider Obstetrics & Gynecology | DX: N93.9 Abnormal uterine and vaginal bleeding, unspecified (principal); N84.1 Polyp of cervix uteri | CPT/HCPCS: 58558 ==

== ENCOUNTER 2023-11-22 12:46 | Outpatient (REF) | payer MEDICAID, SELFPAY ==
[2023-11-22 13:28] LABS: MANUAL DIFF FLAG NO
[2023-11-22 13:52] LABS: Basophils Absolute Auto 0.1 X10*3/uL (0.0-0.2); Eosinophils Absolute Auto 0.1 X10*3/uL (0.0-0.4); Eosinophils Percent Auto 1.7 % (0-4); Hematocrit 35.4 % (37.0-47.0); Hemoglobin 11.2 g/dl (12.0-16.0); Imm Gran Abs Auto 0.04 X10*3/uL (0.00-0.03); Imm Gran Pct Auto 0.5 % (0.0-0.4); Immature Retic Fraction 20.3 % (3.0-15.9); Lymphocytes Percent Auto 24.6 % (20-40); Mean Corpuscular HGB Conc 31.6 g/dl (31.0-35.0); Mean Corpuscular Hemoglobin 25.9 pg (27.0-33.0); Mean Corpuscular Volume 81.9 fL (80.0-98.0); Mean Platelet Volume 11.7 fL (9.4-12.3); Monocytes Absolute Auto 0.6 X10*3/uL (0.1-1.2); Monocytes Percent Auto 7.6 % (2-11); Neutrophils Absolute Auto 5.3 x10*3/uL (2.0-8.3); Neutrophils Percent Auto 64.6 % (45-73); Platelet Count 338 X10*3/uL (160-400); Red Blood Count 4.32 X10*6/uL (4.20-5.50); Red Cell Distribution Width 13.2 % (11.0-16.0); Retic HGB Equivalent 27.9 pg (30.0-35.0); Reticulocyte Percent 1.5 % (0.5-1.8); Reticulocytes Absolute 0.064 X10*6/uL (0.026-0.095); White Blood Count 8.2 X10*3/uL (4.8-10.8)
[2023-11-22 14:49] LABS: Alanine Aminotransferase 12 U/L (0-31); Albumin Level 4.3 g/dL (3.5-5.0); Alkaline Phosphatase 71 U/L (39-117); Anion Gap 12 (12-20); Aspartate Amino Transferase 24 U/L (5-31); Bilirubin Total 0.2 mg/dL (0.0-1.0); Blood Urea Nitrogen 12 mg/dL (9-16); Calcium 9.2 mg/dL (8.4-10.2); Carbon Dioxide 26 mmol/L (22-29); Chloride 106 mmol/L (96-108); Estimated Glomerular Filt Rate > 60; Glucose Random 88 mg/dL (60-115); Iron 55 mcg/dL (30-160); Percent Iron Saturation 14 % (15-50); Potassium 4.2 mmol/L (3.3-5.1); Sodium 140 mmol/L (135-145); TSH reflex Free T4 1.59 uIU/mL (0.32-4.0); Total Iron Binding Capacity 383 mcg/dL (228-428); Total Protein 7.9 g/dL (6.5-8.0); Unsaturated Iron Binding 328 ug/dL
[2023-11-22 15:01] LABS: Vitamin B12 409 pg/mL (200-900)
[2023-11-25 13:39] LABS: Anti Nuclear Antibody Screen NEGATIVE (NEGATIVE)
== END 2023-11-22 12:47 | disposition home or self-care (01) ==
LOC: HO.HHCL 12:46
PROVIDERS: Visit Provider Emergency Medicine
DX: R42 Dizziness and giddiness (principal)
CPT/HCPCS: 36415; 80053; 82607; 82746; 83540; 84443; 85025; 85045; 86038

== ENCOUNTER 2023-11-28 15:46 | Outpatient (AMB) | payer MEDICAID, SELFPAY ==
--- NOTE | 2023-11-28 15:53 | MHC.OFFVIS ---
Vital Signs 11/28/23 16:00 Height 5 ft 1 in Weight 125 lb BMI 23.6 BP 130/76 Intake Visit Reasons: post op Recreation Therapist Required: Yes Recreation Therapist Language: Branch Logistics Supervisor Name: Kaylene DONG Information Interpreted: non-clinical & clinical Allergies aspirin [ASA] Allergy (Verified 11/28/23 16:00) Angioedema HPI Comments Details: The patient is presenting post hysteroscopy D&C no complaints minimal vaginal bleeding no feverishness chills or abdominal pain. The pathology showed the following: A. Endometrium, curettage: Benign inactive to late secretory endometrium with glandular and stromal breakdown, and fragments of polyp; no atypia or carcinoma. B. Endometrial polyp, resection: Benign endometrial polyp with secretory changes and chronic endometritis; no atypia or carcinoma The following workup was done.: H&H= 11.2/35.4 TSH was negative. Co testing done in 07/04 was LGSIL, this was followed by colpo/biopsy/ECC which showed SUNIL 1 Mammogram was done in 07/02 was BI-RADS 2, mammogram ordered, not done yet Pelvic ultrasound showed the following: IMPRESSION: 1. Thickened heterogeneous endometrium with a possible polyp. Hysterosonography or hysteroscopy may be useful for further evaluation. 2. Benign simple right ovarian cyst needs no further follow-up. [facility] Medical History (Updated 11/28/23 @ 16:14 by Elvis Gupta MD) Abnormal uterine bleeding (AUB) Osteoporosis Hyperlipidemia H/O abnormal cervical Papanicolaou smear History of anxiety Vitamin D deficiency Asthma Hypothyroid Surgical History Hx of tubal ligation History of thyroid surgery Social History Household Members Other:: daughter Housing: House Alcohol intake: current Alcohol intake frequency: does not drink Patient Tobacco Use Status: Never used Tobacco Current occupational status: unemployed Sexual orientation: Straight/Heterosexual Gender identity: Female Female Reproductive History Menstrual Age of Menarche: 12 Review of Systems Const All systems reviewed & are unremarkable except as noted in HPI and below Reports as per HPI and Reports no additional complaints GI Reports no additional complaints Reports no additional complaints Assessment & Plan Assessment & Plan (1) Dysplasia of cervix, low grade (SUNIL 1): Code(s): N87.0 - Mild cervical dysplasia Category: Medical Plan: Instructions given the patient to schedule next Co testing in 07/05. The patient verbalized understanding (2) Abnormal uterine bleeding (AUB): Comment: Endometrial polyp on ultrasound status post hysteroscopy polypectomy Anemia Code(s): N93.9 - Abnormal uterine and vaginal bleeding, unspecified Category: Medical Plan: Iron sulfate 325 mg p.o. q.d.. Discussed with the patient the intraoperative finding during the hysteroscopy status post polypectomy and the pathology results, the patient was reassured. Discussed with the patient the results of the work up done and options of treatment including Lysteda, BCP's, Mirena IUD, endometrial ablation and hysterectomy. All pros, cons, risks and benefits if each option was discussed with the patient and the patient decided to think about it and get back to us. All questions answered the patient verbalized understanding. Medications: Discontinued tranexamic acid (Lysteda) Start 1st day of menses and take it up to 3-5 days of menses. Discontinued Reason: Doctor's Order 1,300 mg (2 x 650 mg) PO TID 5 days 30 tabs 12RF
[2023-11-28 16:00] VITALS: BP 130/76; BMI 23.6
== END 2023-11-28 16:21 | disposition home or self-care (01) ==
LOC: HO.HWS 15:46
PROVIDERS: PCP Nurse Practitioner Primary Care; Visit Provider Obstetrics & Gynecology
DX: N87.0 Mild cervical dysplasia (principal); N93.9 Abnormal uterine and vaginal bleeding, unspecified
CPT/HCPCS: 99213

== ENCOUNTER → 2023-11-28 15:46 | Outpatient (BNVA) | payer MEDICAID, SELFPAY | PROVIDERS: PCP Nurse Practitioner Primary Care; Visit Provider Obstetrics & Gynecology | DX: N87.0 Mild cervical dysplasia (principal); N93.9 Abnormal uterine and vaginal bleeding, unspecified; Z98.51 Tubal ligation status | CPT/HCPCS: 99212 ==

== ENCOUNTER 2023-12-13 13:39 | Outpatient (REF) | payer MEDICAID, SELFPAY ==
--- NOTE | ~2023-12-13 | MM_ITS ---
EXAMINATION: MM SCREENING DIGITAL BREAST TOMOSYNTHESIS, BILATERAL CLINICAL INFORMATION: Screening. Asymptomatic. COMPARISON: Mammography: This study is compared with prior exams dating back to 2018. TECHNIQUE: Digital breast tomosynthesis is performed in both the craniocaudal and mediolateral oblique views along with computer-aided detection (CAD). Synthesized 2D images are generated from the tomosynthesis. FINDINGS: The breasts are heterogeneously dense, which may obscure small masses (ACR BI-RADS breast composition Category c). There are no significant masses, abnormal calcifications, or other abnormalities. Well-circumscribed benign masses are present in the medial aspect of the left breast. These are shown to represent cysts on prior sonography. There are now smaller. MM/MM tomosynthesis screening BI IMPRESSION: No mammographic evidence of malignancy. ASSESSMENT: BI-RADS BI-RADS 2 - Benign Findings RECOMMENDATION: Routine annual mammography screening. 1 year F/U This examination should not preclude the clinical evaluation of a suspicious palpable abnormality. This patient's information was entered into a reminder system with a target due date for their next mammogram.
== END 2023-12-13 13:40 | disposition home or self-care (01) ==
LOC: HO.MAMMO 13:39
PROVIDERS: PCP Nurse Practitioner Primary Care; Visit Provider Nurse Practitioner Primary Care
DX: Z12.31 Encounter for screening mammogram for malignant neoplasm of breast (principal)
CPT/HCPCS: 77063; 77067

== ENCOUNTER → 2023-12-13 14:00 | Outpatient (BNV) | payer MEDICAID, SELFPAY | PROVIDERS: PCP Nurse Practitioner Primary Care; Visit Provider Radiology Diagnostic Radiology | DX: Z12.31 Encounter for screening mammogram for malignant neoplasm of breast (principal) | CPT/HCPCS: 77063; 77067 ==

== ENCOUNTER 2024-06-24 10:02 | Outpatient (REF) | payer MEDICAID, SELFPAY ==
[2024-06-25 10:49] LABS: HPV 16,18/45 See PAP report
== END 2024-06-24 10:03 | disposition home or self-care (01) ==
LOC: HO.LNP 10:02
PROVIDERS: PCP Nurse Practitioner Primary Care; Visit Provider Obstetrics & Gynecology
DX: Z01.419 Encounter for gynecological examination (general) (routine) without abnormal findings (principal); N87.0 Mild cervical dysplasia
CPT/HCPCS: 87624; 88175; 99396

== ENCOUNTER 2024-06-24 10:02 | Outpatient (AMB) | payer MEDICAID, SELFPAY ==
--- NOTE | 2024-06-24 10:02 | A.OFFVIS_ITS ---
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 No complaints. Last Pap/HPV was LSIL HPV E6 E7 positive, colpo biopsy ECC showed SUNIL 1 Last Mammogram was BI-RADS 2 No previous screening colonoscopy PFSH Medical History Abnormal uterine bleeding (AUB) Osteoporosis Hyperlipidemia H/O abnormal cervical Papanicolaou smear History of anxiety Vitamin D deficiency Asthma Hypothyroid Surgical History Hx of tubal ligation History of thyroid surgery Social History Household Members Other:: daughter Housing: House Alcohol intake: current Alcohol intake frequency: does not drink Patient Tobacco Use Status: Never used Tobacco Current occupational status: unemployed Sexual orientation: Straight/Heterosexual Gender identity: Female Female Reproductive History Menstrual Age of Menarche: 12 Date of last menstrual period: 06/09/24 Review of Systems Const All systems reviewed & are unremarkable except as noted in HPI and below Card Reports as per HPI Resp Reports as per HPI GI Reports as per HPI and Reports no additional complaints Reports as per HPI Physical Exam Vital Signs: Last Vital Signs BP 120/70 06/24/24 10:06 Const General: cooperative, healthy appearing and comfortable Chest Chest palpation & inspection: normal inspection of the chest and normal palpation of entire chest wall Breast/axilla inspection: normal inspection of the breasts and normal inspection of the axillae Breast/axilla palpation: normal palpation of the breasts, normal palpation of the axillae and no axillary lymphadenopathy Resp Effort & Inspection: normal respiratory effort Auscultation: clear to auscultation bilaterally Percussion: percussion normal Cardio Palpation: normal PMI Rate: regular rate Rhythm: regular rhythm Heart sounds: no murmurs and no rubs Peripheral pulses: Peripheral pulses 2+ throughout GI Inspection: Yes normal to inspection Palpation (GI): Soft to palpation, nontender, no guarding, not rigid and No hepatosplenomegaly present Percussion: Yes normal to percussion Auscultation: normal bowel sounds Rectal Exam - Female: deferred General: Yes bladder normal to palpation External Female Exam: No lesion Speculum Exam - Vagina: normal appearance of the vagina, normal palpation, normal vaginal discharge and not erythematous Speculum Exam - Cervix: normal appearance of the cervix and normal palpation Bimanual exam- vagina & uterus: normal bimanual exam, normal palpation, uterine size normal, bladder normal to palpation, consistency normal and normal palpation Bimanual Exam- Adnexa, other: normal adnexae, no masses and no tenderness Assessment & Plan Assessment & Plan (1) Well woman exam: Comment: SUNIL 1 in 07/04 Code(s): Z01.419 - Encounter for gynecological examination (general) (routine) without abnormal findings Category: Medical Plan: Cotesting done. Instructions given the patient to schedule next screening Mammogram in 01/03. Counseled the patient about the recommended dietary allowance of 1000 mg of Calcium & 600 IU of vitamin D. The patient was refer to GI for screening colonoscopy The patient was instructed to perform monthly self-breast exams and to schedule an annual exam in a year; All questions answered and the patient verbalized understanding. Instructed the patient to schedule annual exam in a year Orders: Orders Pap Smear Today N87.0 - Mild cervical dysplasia HPV High risk Today N87.0 - Mild cervical dysplasia Referrals Gastroenterology Referral Z12.11 - Encounter for screening for malignant neoplasm of colon Coding Level of Care Code Est Pt Prev Care 40-64y(24902) Diagnoses Well woman exam Z01.419
[2024-06-24 10:06] VITALS: BP 120/70
== END 2024-06-24 10:25 | disposition home or self-care (01) ==
LOC: HO.HWS 10:02
PROVIDERS: PCP Nurse Practitioner Primary Care; Visit Provider Obstetrics & Gynecology
DX: Z01.419 Encounter for gynecological examination (general) (routine) without abnormal findings (principal)
CPT/HCPCS: 99396

== ENCOUNTER 2024-07-15 02:14 | Emergency (ER) | payer MEDICAID, SELFPAY ==
[2024-07-15 02:19] VITALS: BP 138/82; PULSE 110; RESP 16; TEMP 36; O2SAT 100; BMI 24.1
--- NOTE | 2024-07-15 02:38 | MHC.EDTECH ---
at this time the pt was brought to a room and pt was changed over into hospital gown
[2024-07-15 03:02] LABS: COVID-19 Test Negative (Negative); IDNOW Serial# 08D9AD1C; IDNOW Serial# 152EDE1D; Influenza A Negative (Negative); Influenza B2 Negative (Negative)
--- NOTE | 2024-07-15 03:14 | ED.URI ---
HPI - URI/Sore Throat General Chief Complaint: Allergic Reaction Stated Complaint: allergic reaction Time Seen by Provider: 07/15/24 03:02 Source: patient Mode of arrival: ambulatory Limitations: no limitations History of Present Illness ED Provider: HPI Narrative: Patient complaining of sore throat, difficulty in speaking for last 3 days got worse prior to arrival patient's allergic to aspirin took some medication at home not sure whether medicine had aspirin no known and since then feeling more irritation in the throat no rash no itching Related Data Home Medications ?Medication ?Instructions ?Recorded ?Confirmed albuterol sulfate 90 mcg/actuation 2 puff PO Q4-6H PRN asthma 07/17/21 11/13/23 aerosol inhaler (ProAir HFA) levothyroxine 25 mcg tablet 25 mcg PO DAILY 07/17/21 11/13/23 Previous Rx's ?Medication ?Instructions ?Recorded cefuroxime axetil 500 mg tablet 500 mg PO BID 7 days #14 tabs 07/15/24 Allergies Allergy/AdvReac Type Severity Reaction Status Date / Time aspirin [ASA] Allergy Angioedema Verified 07/15/24 02:21 Review of Systems Review of Systems: Yes all other systems are reviewed and are negative PMFSH Past Medical History Medical History Abnormal uterine bleeding (AUB) Osteoporosis Hyperlipidemia H/O abnormal cervical Papanicolaou smear History of anxiety Vitamin D deficiency Asthma Hypothyroid Surgical History Hx of tubal ligation History of thyroid surgery Social History Social History Household Members Other:: daughter Housing: House Alcohol intake: current Alcohol intake frequency: does not drink Patient Tobacco Use Status: Never used Tobacco Smoked in Last 30 Days: No Use of substances other than those prescribed or required for medical reasons: No Advance Directives: No Do you have a plan to hurt others: No Plan Current occupational status: unemployed Sexual orientation: Straight/Heterosexual Gender identity: Female Physical Exam Vital Signs: Vital Signs: Last Vital Signs Temp 97.6 F 07/15/24 04:42 Pulse 82 07/15/24 04:42 Resp 15 07/15/24 04:42 BP 127/80 07/15/24 04:42 Pulse Ox 100 07/15/24 04:42 O2 Del Method Room Air 07/15/24 04:42 BMI result Body Mass Index 24.1 Appearance: Alert. Oriented X3. No acute distress. ENT: Pharynx normal. Oral Mucosa moist uvula normal Neck: Normal inspection. Neck supple. CVS: Normal heart rate and rhythm. Pulses normal. Respiratory: No respiratory distress. Equal air entry bilateral, no wheezing/rales/rhonchi Skin: Skin warm and dry. Normal skin color. Normal skin turgor. Extremities: No lower extremity edema. Neuro: Oriented X 3. Medications Administered Discontinued Medications Generic Name Dose Route Start Last Admin Trade Name Freq PRN Reason Stop Dose Admin Cefuroxime Axetil 500 mg 07/15/24 04:21 07/15/24 04:31 Cefuroxime Axetil 500 Mg Tablet PO 07/15/24 04:22 500 mg ONCE ONE Administration Dexamethasone 10 mg 07/15/24 04:19 07/15/24 04:30 Dexamethasone 2 Mg Tablet PO 07/15/24 04:20 10 mg ONCE ONE Administration Medical Decision Making Medical Decision Making MDM Narrative: Patient has acute laryngitis/pharyngitis will prescribe antibiotic and was given a dose of Decadron in the ER Lab Data MDM Lab Attestation statement: I reviewed the patient's lab results. Labs: Lab Results 07/15/24 07/15/24 Range/Units 02:33 03:03 COVID-19 (MARCUS) Negative (Negative) COVID-19 Clin Com See Note Influenza Type A (LATHA) Negative (Negative) Influenza Type B (LATHA) Negative (Negative) Influenza A & B Note See Note S. pyogenes GrpA LATHA Negative (Negative) Discharge Plan Discharge Clinical Impression: Laryngitis Patient Disposition: Home, Self-Care Instructions: Laryngitis (ED) Additional Instructions: Drink plenty of fluids Take antibiotic as prescribed Your strep test is negative Follow with your PCP if not better Prescriptions: New cefuroxime axetil 500 mg tablet 500 mg PO BID 7 Days Qty: 14 0RF No Action levothyroxine 25 mcg tablet 25 mcg PO DAILY albuterol sulfate [ProAir HFA] 90 mcg/actuation HFA aerosol inhaler 2 puff PO Q4-6H PRN (Reason: asthma) Interventions: ED Discharge Assessment Last Done: 07/15/24 04:42 Discharge Date/Time: 07/15/24 04:44 Print Language: Sudanese
[2024-07-15 03:19] LABS: IDNOW Serial# 6674DD1D; Strep A Nucleic Acid Negative (Negative)
[2024-07-15 03:51] VITALS: BP 119/75; PULSE 92; RESP 16; TEMP 36.6; O2SAT 98
[2024-07-15 04:20] VITALS: BP 127/80; PULSE 82; RESP 15; TEMP 36.4; O2SAT 100
[2024-07-15] MEDS: dexAMETHasone 2 MG TABLET 10 MG PO (04:30)
[2024-07-15] MEDS: cefuroxime axetiL 500 MG TABLET PO (04:31)
[2024-07-15 04:42] VITALS: BP 127/80; PULSE 82; RESP 15; TEMP 36.4; O2SAT 100
== END 2024-07-15 04:44 | disposition home or self-care (01) ==
PROVIDERS: Emergency Provider Internal Medicine; PCP Nurse Practitioner Primary Care
DX: J04.0 Acute laryngitis (principal); Z03.818 Encounter for observation for suspected exposure to other biological agents ruled out; E78.5 Hyperlipidemia, unspecified; J45.909 Unspecified asthma, uncomplicated
CPT/HCPCS: 87502; 87635; 87651; 99283; 99284; J8540

== ENCOUNTER 2024-08-13 10:41 | Outpatient (REF) | payer MEDICAID, SELFPAY ==
--- NOTE | ~2024-08-13 | MM_ITS ---
EXAMINATION: Dual-Energy X-ray Absorptiometry - Bone Density Study HISTORY: Estrogen deficiency TECHNIQUE: [place] Dual energy absorptiometry (DEXA) of the lumbar spine, total left hip, and femoral neck was performed. COMPARISON: Comparison is made with the prior examination dated 11/28/2017. FINDINGS: The bone mineral density of the lumbar spine is 1.106 with a T-score of -0.6, and a Z-score of 0.0. This represents a BMD change of -3.4% compared to the prior exam. This is statistically significant. The bone mineral density of the left total hip is 0.866 with a T-score of -1.1, and a Z-score of 0.5. This represents BMD change of 25.1% compared to the prior exam. This is statistically significant. The bone mineral density of the left femoral neck is 0.875 with a T-score of -1.2, and a Z-score of 0.2. This represents BMD change of 31.6% compared to the prior exam. FRACTURE RISK: The FRAX index suggests a ten year probability of major osteoporotic fracture of 2.1%, and of hip fracture 0.1%. MM/XR DEXA axial skeleton IMPRESSION: Based on bone mineral density, the diagnosis is consistent with osteopenia. All bone density values are in grams per centimeter squared. At this facility, the least significant change in BMD with 95% confidence is 0.022 at the lumbar spine, 0.027 at the hip, and 0.023 at the distal 1/3 radius. Electronically signed by: Kelby Farrell MD 08/18/2024 10:01 AM EST
== END 2024-08-13 10:42 | disposition home or self-care (01) ==
LOC: HO.MAMMO 10:41
PROVIDERS: PCP Nurse Practitioner Primary Care; Visit Provider Nurse Practitioner Primary Care
DX: M81.0 Age-related osteoporosis without current pathological fracture (principal)
CPT/HCPCS: 77080

== ENCOUNTER → 2024-08-13 11:00 | Outpatient (BNV) | payer MEDICAID, SELFPAY | PROVIDERS: PCP Nurse Practitioner Primary Care; Visit Provider Radiology Diagnostic Radiology | DX: M85.88 Other specified disorders of bone density and structure, other site (principal) | CPT/HCPCS: 77080 ==

== ENCOUNTER 2024-08-19 10:15 | Outpatient (REF) | payer MEDICAID, SELFPAY ==
--- NOTE | 2024-08-19 10:18 | PFT_ITS ---
Flows: FEV1: 81 % of predicted at 2.03 L FVC: 77 % of predicted at 2.39 L FEV1/FVC: 85 % Bronchodilator response: Absent Volumes: Total lung capacity: 76 % of predicted at 3.55 L Residual volume: 83 % of predicted at 1.10 L Slow vital capacity: 73 % of predicted at 2.45 L Expiratory reserve volume: 74 % of predicted at 0.68 L Diffusion capacity: Normal Impression: Mild restrictive ventilatory defect with no bronchodilator response. MTDD
== END 2024-08-19 10:16 | disposition home or self-care (01) ==
LOC: HO.RESP 10:15
PROVIDERS: PCP Nurse Practitioner Primary Care; Visit Provider Nurse Practitioner Primary Care
DX: J45.30 Mild persistent asthma, uncomplicated (principal)
CPT/HCPCS: 94010; 94640; 94727; 94729

== ENCOUNTER → 2024-08-19 10:18 | Outpatient (BNV) | payer MEDICAID, SELFPAY | PROVIDERS: PCP Nurse Practitioner Primary Care; Visit Provider Internal Medicine Pulmonary Disease | DX: J45.30 Mild persistent asthma, uncomplicated (principal) | CPT/HCPCS: 94060; 94727; 94729 ==